=== PATIENT | male | born 1970 | race African-American/Black ===

== ENCOUNTER 2021-01-17 18:10 | Emergency (ER) | payer OTHER ==
[2021-01-17 18:35] VITALS: BP 104/70
[2021-01-17 20:09] LABS: Basophils % (Auto) 0.2 % (0.0-1.8); Eosinophils # (Auto) 0.1 K/mm3 (0.0-0.4); Eosinophils % (Auto) 0.3 % (0.0-4.3); Hematocrit 39.6 % (35.5-45.6); Hemoglobin 13.3 gm/dl (11.8-15.2); Lymphocytes # (Auto) 1.4 K/mm3 (1.2-5.4); Lymphocytes % (Auto) 8.1 % (13.4-35.0); Mean Corpuscular HGB Conc 34 % (32-34); Mean Corpuscular Volume 94 fl (84-94); Monocytes # (Auto) 0.9 K/mm3 (0.0-0.8); Monocytes % (Auto) 5.3 % (0.0-7.3); Platelet Count 246 K/mm3 (140-440); Red Blood Count 4.21 M/mm3 (3.65-5.03); Red Cell Distribution Width 13.9 % (13.2-15.2)
[2021-01-17 20:28] LABS: Albumin 4.6 g/dL (3.9-5); Calcium 9.4 mg/dL (8.4-10.2)
[2021-01-17] MEDS ORDERED: SODIUM CHLORIDE 0.9% 1000 ML 1,000 ML IV ONE (21:53)
--- NOTE | 2021-01-18 00:56 | Emergency Department Report ---
ED General Adult HPI - General Chief complaint: Weakness Stated complaint: DEHYDRATION Time Seen by Provider: 01/17/21 19:19 Source: patient Mode of arrival: Stretcher Limitations: No Limitations - History of Present Illness Initial comments: 50-year-old male presents emergency department with son complaining of fatigue and muscle cramps weakness excessive sweating earlier today while working out in the yard. Patient states he was overheating and sweating and developed cramps to his legs to his flank pain and abdomen with's some mild lightheadedness and dull headaches reports the symptoms have improved since being in the main emergency department report no nausea vomiting hemoptysis hematemesis hematochezia no fever chills sweats. Consistency: constant Improves with: none Worsens with: none Associated Symptoms: denies other symptoms Treatments Prior to Arrival: none - Related Data Home Medications Medication Instructions Recorded Confirmed Last Taken Amlodipine Besylate [Norvasc] 2.5 mg PO DAILY 12/27/13 04/05/15 04/05/15 05:00 Cyclobenzaprine HCl [Flexeril 5 MG 10 mg PO TID 12/27/13 04/05/15 12/27/13 TAB] Lovastatin [Mevacor] 20 mg PO QPM 12/27/13 03/29/15 12/26/13 Previous Rx's Medication Instructions Recorded Last Taken Type Docusate Sodium [Colace CAP] 100 mg PO BID #60 capsule 03/06/15 Unknown Rx oxyCODONE /ACETAMINOPHEN [Percocet 1 - 2 tab PO Q6HR PRN #30 tablet 04/05/15 Unknown Rx 5/325] Allergies Allergy/AdvReac Type Severity Reaction Status Date / Time No Known Allergies Allergy Unverified 12/27/13 13:31 ED Review of Systems ROS: Stated complaint: DEHYDRATION Other details as noted in HPI Comment: All other systems reviewed and negative ED Past Medical Hx - Past Medical History Previous Medical History?: Yes Hx Hypertension: Yes (6YRS) Hx Heart Attack/AMI: No Hx Renal Disease: No Hx Seizures: No Hx Asthma: No Additional medical history: high cholesterol - Social History Smoking Status: Former Smoker - Medications Home Medications: Home Medications Medication Instructions Recorded Confirmed Last Taken Type Amlodipine Besylate [Norvasc] 2.5 mg PO DAILY 12/27/13 04/05/15 04/05/15 05:00 History Cyclobenzaprine HCl [Flexeril 5 MG 10 mg PO TID 12/27/13 04/05/15 12/27/13 History TAB] Lovastatin [Mevacor] 20 mg PO QPM 12/27/13 03/29/15 12/26/13 History Docusate Sodium [Colace CAP] 100 mg PO BID #60 capsule 03/06/15 04/05/15 Unknown Rx oxyCODONE /ACETAMINOPHEN [Percocet 1 - 2 tab PO Q6HR PRN #30 tablet 04/05/15 Unknown Rx 5/325] ED Physical Exam - General Limitations: No Limitations General appearance: alert, in no apparent distress - Head Head exam: Present: atraumatic, normocephalic - Eye Eye exam: Present: normal appearance, PERRL, EOMI. Absent: conjunctival injection Pupils: Present: normal accommodation - ENT ENT exam: Present: normal exam, normal orophraynx, mucous membranes moist, TM's normal bilaterally - Neck Neck exam: Present: normal inspection, full ROM - Respiratory Respiratory exam: Present: normal lung sounds bilaterally. Absent: respiratory distress, wheezes, rales, chest wall tenderness, accessory muscle use - Cardiovascular Cardiovascular Exam: Present: regular rate, normal rhythm. Absent: systolic murmur, diastolic murmur, rubs, gallop - GI/Abdominal GI/Abdominal exam: Present: soft, normal bowel sounds. Absent: tenderness, guarding, hyperactive bowel sounds, hypoactive bowel sounds, organomegaly, mass - Rectal Rectal exam: Present: deferred - Extremities Exam Extremities exam: Present: normal inspection, full ROM, normal capillary refill - Back Exam Back exam: Present: normal inspection. Absent: CVA tenderness (R), CVA tenderness (L) - Neurological Exam Neurological exam: Present: alert, oriented X3, CN II-XII intact, normal gait - Psychiatric Psychiatric exam: Present: normal affect, normal mood - Skin Skin exam: Present: warm, dry, intact, normal color. Absent: rash, cyanosis, diaphoretic, urticaria, petechiae, pallor ED Course Vital Signs 01/17/21 18:34 Temperature 98.7 F Pulse Rate 99 H Respiratory 16 Rate Blood Pressure 104/70 [Right] O2 Sat by Pulse 97 Oximetry ED Medical Decision Making - Lab Data Result diagrams: 01/17/21 19:30 01/17/21 19:30 Critical care attestation.: If time is entered above; I have spent that time in minutes in the direct care of this critically ill patient, excluding procedure time. ED Disposition Clinical Impression: Dehydration, Heat exhaustion, Myalgia Disposition: TO HOME OR SELFCARE Is pt being admited?: No Does the pt Need Aspirin: No Condition: Stable Instructions: Heat Exhaustion, Rehydration, Adult, Musculoskeletal Pain, Dehydration, Adult Referrals: [facility] [Provider Group] - 3-5 Days CONSTANTINE MARTINEZ MD [Staff Physician] - 3-5 Days
[2021-01-18 01:29] LABS: Bacteria,Urine 1+ /HPF (Negative); Bilirubin,Urine NEG (Negative); Blood,Urine NEG (Negative); Color,Urine Yellow (Yellow); Hyaline Casts,Urine 1 /LPF; Mucus,Urine 2+ /HPF; Protein,Urine <15 mg/dL mg/dL (Negative); Urobilinogen,Urine < 2.0 mg/dL (<2.0)
== END 2021-01-18 01:55 | disposition home or self-care (01) ==
LOC: ED 18:10
DX: T67.5XXA Heat exhaustion, unspecified, initial encounter (principal); E86.0 Dehydration; M79.18 Myalgia, other site; I10 Essential (primary) hypertension; X58.XXXA Exposure to other specified factors, initial encounter; Y93.9 Activity, unspecified; Y92.89 Other specified places as the place of occurrence of the external cause; Y99.8 Other external cause status
CPT/HCPCS: 36415; 80053; 81001; 82550; 83735; 85025; 96360; 99284; J7030